=== PATIENT | female | born 1970 | race Caucasian/White ===

== ENCOUNTER 2022-04-17 08:51 | Observation (INO) | payer BC ==
[~2022-04-17 08:51] MED LIST: ACETAMINOPHEN TAB 500 MG TAB PO PRN; DEXAMETHASONE SOD PHOSPHATE 4 MG/ML 1 ML VIAL IV ONE; HEPARIN SODIUM,PORCINE/PF 5,000 UNIT/0.5 ML SYRINGE SQ PRN; HYDROmorphone 0.5 MG/0.5 ML SYRINGE IVP PRN; LIDOCAINE 1% (10MG/ML) FOR IV START INTRADERMA PRN; MIDAZOLAM 2 MG/2 ML VIAL IV PRN
[2022-04-17] MEDS: LACTATED RINGERS 1,000 ML IV SCH (10:18)
[2022-04-17] MEDS: ONDANSETRON 4 MG/2 ML VIAL IVP ONE ×2 (10:33→13:25)
[2022-04-17] MEDS ORDERED: MIDAZOLAM 2 MG/2 ML VIAL IVP ONE (10:46)
[2022-04-17] MEDS ORDERED: fentaNYL (PF) 50 MCG/ML 2 ML AMP IVP ONE (10:46)
--- NOTE | 2022-04-17 10:51 | P.GSHP ---
History of Present Illness H&P Date: 04/17/22 Chief Complaint: Panniculus Is a 52-year-old female who has a well-formed panniculus. Patient has lost in excess 100 pounds after her LAP-BAND surgery. Patient resents today for panniculectomy. Patient aware that this procedure remove redundant skin and fat. She is also aware that this is not a cosmetic procedure and revisional cosmetic procedure surgery may be required for cosmesis. Patient with a risk of infection hematoma and seroma. Past Medical History Past Medical History: Hypertension History of Any Multi-Drug Resistant Organisms: None Reported Past Surgical History: Bariatric Surgery Additional Past Surgical History / Comment(s): LAP BAND SURGERY, LEFT ARM SURGERY FOR FRACTURE, Past Anesthesia/Blood Transfusion Reactions: No Reported Reaction Smoking Status: Former smoker - Past Family History Mother Family Medical History: Cancer Additional Family Medical History / Comment(s): BREAST CANCER Medications and Allergies Home Medications Medication Instructions Recorded Confirmed Type Iron 45 mg PO DAILY 04/13/22 04/17/22 History Lisinopril [Zestril] 10 mg PO DAILY 04/13/22 04/17/22 History QUEtiapine FUMARATE 100 mg PO HS 04/13/22 04/17/22 History buPROPion XL [Wellbutrin XL] 300 mg PO DAILY 04/13/22 04/17/22 History Phentermine HCl [Adipex-P] 37.5 mg PO DAILY 04/16/22 04/17/22 History Allergies Allergy/AdvReac Type Severity Reaction Status Date / Time No Known Allergies Allergy Verified 04/17/22 10:10 Surgical - Exam Vital Signs Temp Pulse Resp BP Pulse Ox 98.8 F 76 18 135/82 98 04/17/22 10:23 04/17/22 10:23 04/17/22 10:23 04/17/22 10:23 04/17/22 10:23 - General well developed, well nourished, no distress - Eyes PERRL - ENT normal pinna - Neck no masses - Respiratory normal expansion - Cardiovascular Rhythm: regular - Abdomen Well-formed panniculus with evidence of chronic skin irritation Abdomen: soft, non tender Assessment and Plan Assessment: Panniculus. We'll perform panniculectomy.
[2022-04-17] MEDS ORDERED: KETOROLAC 15 MG/ML 1 ML VIAL ONE (11:01)
[2022-04-17] MEDS ORDERED: GLYCOPYRROLATE 0.2 MG/ML 2 ML VIAL ONE (11:01)
[2022-04-17] MEDS ORDERED: SUCCINYLCHOLINE CHLORIDE 100 MG/5 ML SYR IV ONE (11:01)
[2022-04-17] MEDS ORDERED: LIDOCAINE 1% INJ 10MG/ML (20 ML MDV) ONE (11:01)
[2022-04-17] MEDS ORDERED: ROPIVACAINE 5 MG/ML 30 ML VIAL ONE (11:01)
[2022-04-17] MEDS ORDERED: HYDROmorphone (PF) 1 MG/ML ONE (11:01)
[2022-04-17] MEDS ORDERED: ROCURONIUM 10 MG/ML (5 ML VIAL) IV ONE (11:01)
[2022-04-17] MEDS ORDERED: NEOSTIGMINE 1 MG/ML 10 ML VIAL ONE (11:01)
[2022-04-17] MEDS ORDERED: PHENYLEPHRINE-0.9% NACL SYG 1,000 MCG/10 ML SYRINGE ONE (11:01)
[2022-04-17] MEDS ORDERED: PROPOFOL 10 MG/ML 20 ML VIAL IV ONE (11:01)
[2022-04-17] MEDS ORDERED: fentaNYL (PF) 50 MCG/ML 2 ML AMP ONE (11:01)
[2022-04-17] MEDS ORDERED: SODIUM CHLORIDE 0.9% (PF) 10 ML VIAL ONE (11:01)
[2022-04-17 11:15] LABS: Calcium 9.2 mg/dL (8.4-10.2); Total Bilirubin 0.9 mg/dL (0.2-1.3)
[2022-04-17 11:18] LABS: Albumin 4.2 g/dL (3.5-5.0); Potassium 4.6 mmol/L (3.5-5.1)
--- NOTE | 2022-04-17 11:35 | P.ANPRN ---
Procedure Note - Anesthesia - Nerve Block Performed Bilateral Erector Spinae Single Time Out Performed: Yes (1045) Date of Procedure: 04/17/22 Procedure Start Time: 10:46 Procedure Stop Time: 10:52 Location of Patient: PreOp Indication: Acute Post-Operative Pain, Requested by Surgeon Specifically requested for management of pain by DrJatinder: Yordy Gonsales Sedation Type: Sedate with meaningful contact maintained Preparation: Sterile Prep Position: Supine Catheter: None Needle Types: Pajunk Needle Gauge: 21 Ultrasound used to visualize needle placement: Yes Ultrasound used to observe medication spread: Yes Injectate: 0.5% Ropivacaine (see comment for volume) (15cc + 15cc nacl) Blood Aspirated: No Pain Paresthesia on Injection Noted: No Resistance on Injection: Normal Image Stored and Saved: Yes Events: Uneventful and Well Tolerated
[2022-04-17] MEDS ORDERED: LACTATED RINGERS 1,000 ML IV ONE ×2 (12:37→12:50)
--- NOTE | 2022-04-17 12:48 | P.OP ---
Date of Procedure: 04/17/22 Preoperative Diagnosis: Panniculus Postoperative Diagnosis: Panniculus Procedure(s) Performed: Panniculectomy Anesthesia: WESLEY Surgeon: Yordy Gonsales Estimated Blood Loss (ml): 25 Pathology: none sent Condition: stable Disposition: PACU Description of Procedure: PROCEDURE: The patient was placed on the operating table in supine position and received general anesthetic. The abdomen was prepped and draped in the usual sterile fashion. The lower skin incision was then made after the skin was marked with a marker. The incision ran from the pubic area to the level of the anterosuperior iliac spine. Using blunt and sharp dissection and electrocautery the subcutaneous tissues were then dissected down to the level of the fascia external oblique. Next, a mickey shaped incision was made around the umbilicus and the umbilicus was then dissected down to the level of the fascia external oblique. Care was taken to ensure that the umbilical stalk was wide enough in order to maintain viability of the umbilicus. After the umbilicus was dissected a 0 Vicryl suture was used to orientate the umbilicus. The suture was placed at the 12 o'clock position of the umbilicus. Following this the dissection was then made from the inferior pannicular incision cephalad. The x iphoid and costal margins were the limits of the dissection. Several small perforating vessels were ligated and cautery was used to maintain hemostasis. Once the dissection was performed the panniculus was then divided in the midline from the level of the umbilicus towards the pubic area. Downward and lateral traction was then placed on the abdominal wall and the skin was suitably marked for transection of the umbilicus. The skin was then incised and the Bovie was used for dissection of the pannicular flap. Next, three 10-Bulgarian ARVIN drains were placed in the wound and brought out through separate stab incisions at the level of the pubic area. The drains were secured to the skin using 3-0 nylon. After the ARVIN drains were secured, Celeste's fascia was closed with interrupted 0 Vicryl sutures and then the skin was closed with running 3-0 Monocryl sutures. Prior to closure of the abdominal wall care was taken to ensure that both the abdominal wall and the abdominal wall flap were hemostatic. Next, the umbilicus was reattached to the abdominal wall. A marking line was made across the top of the iliac crest and this line intercepted with the midline abdominal wall line that had been previously made in the preoperative hold area. A small semicircular U-shaped incision was created at the intersection of the two lines and the umbilicus was brought up through this incision. The umbilicus was then trimmed and secured to the skin using 3-0 Monocryl sutures. At this point the drains were placed to suction. The abdomen was cleaned and then sterile tape was placed over top of the incisions. Abdominal binder was then placed. The patient tolerated the procedure well. The patient was sent to recovery room in stable condition.
[2022-04-17] MEDS ORDERED: ONDANSETRON 4 MG/2 ML VIAL IVP PRN (12:50)
[2022-04-17] MEDS ORDERED: NALOXONE 0.4 MG/ML 1 ML VIAL IV PRN (12:50)
[2022-04-17] MEDS: HYDROmorphone 0.5 MG/0.5 ML SYRINGE IVP PRN ×2 (12:57→13:25)
[2022-04-17] MEDS: KETOROLAC 15 MG/ML 1 ML VIAL IVP SCH (17:04)
[2022-04-17] MEDS: traMADol 50 MG TAB PO PRN (17:10)
--- NOTE | 2022-04-17 19:21 | P.CONS ---
History of Present Illness - Reason for Consult Consult date: 04/17/22 medical management - Chief Complaint Panniculus - History of Present Illness 52-year-old female, with history of hypertension, who has a well-formed panniculus. Patient has lost in excess 100 pounds after her LAP-BAND surgery. Patient resents today for panniculectomy. Patient aware that this procedure remove redundant skin and fat. She is also aware that this is not a cosmetic procedure and revisional cosmetic procedure surgery may be required for cosmesis. Patient with a risk of infection hematoma and seroma. patient admitted to the hospital for possible panniculectomy and is POD # 0 Review of Systems REVIEW OF SYSTEMS: CONSTITUTIONAL: No fever, no malaise, no fatigue. HEENT: No recent visual problems or hearing problems. Denied any sore throat. CARDIOVASCULAR: No chest pain, orthopnea, PND, no palpitations, no syncope. PULMONARY: No shortness of breath, no cough, no hemoptysis. GASTROINTESTINAL: No diarrhea, no nausea, no vomiting, no abdominal pain. NEUROLOGICAL: No headaches, no weakness, no numbness. HEMATOLOGICAL: Denies any bleeding or petechiae. GENITOURINARY: Denies any burning micturition, frequency, or urgency. MUSCULOSKELETAL/RHEUMATOLOGICAL: Denies any joint pain, swelling, or any muscle pain. ENDOCRINE: Denies any polyuria or polydipsia. The rest of the 14-point review of systems is negative. Past Medical History Past Medical History: Hypertension History of Any Multi-Drug Resistant Organisms: None Reported Past Surgical History: Bariatric Surgery Additional Past Surgical History / Comment(s): LAP BAND SURGERY, LEFT ARM SURGERY FOR FRACTURE, Past Anesthesia/Blood Transfusion Reactions: No Reported Reaction Smoking Status: Former smoker - Past Family History Mother Family Medical History: Cancer Additional Family Medical History / Comment(s): BREAST CANCER Medications and Allergies Home Medications Medication Instructions Recorded Confirmed Type Iron 45 mg PO DAILY 04/13/22 04/17/22 History Lisinopril [Zestril] 10 mg PO DAILY 04/13/22 04/17/22 History QUEtiapine FUMARATE 100 mg PO HS 04/13/22 04/17/22 History buPROPion XL [Wellbutrin XL] 300 mg PO DAILY 04/13/22 04/17/22 History Phentermine HCl [Adipex-P] 37.5 mg PO DAILY 04/16/22 04/17/22 History Allergies Allergy/AdvReac Type Severity Reaction Status Date / Time No Known Allergies Allergy Verified 04/17/22 10:10 Physical Exam Vitals: Vital Signs Temp Pulse Resp BP Pulse Ox 04/17/22 13:50 62 16 133/71 100 04/17/22 13:26 70 16 122/77 100 04/17/22 13:08 68 16 122/71 100 04/17/22 12:47 97.1 F L 72 16 117/70 100 04/17/22 10:53 75 16 130/74 100 04/17/22 10:23 98.8 F 76 18 135/82 98 Intake and Output 04/16/22 04/17/22 04/17/22 22:59 06:59 14:59 Intake Total 1550 Output Total 70 Balance 1480 Intake: IV 1550 Output: Urine 20 Estimated Blood Loss 50 Other: Weight 67 kg PHYSICAL EXAMINATION: GENERAL: The patient is alert and oriented x3, not in any acute distress. Well developed, well nourished. HEENT: Pupils are round and equally reacting to light. EOMI. No scleral icterus. No conjunctival pallor. Normocephalic, atraumatic. No pharyngeal erythema. No thyromegaly. CARDIOVASCULAR: S1 and S2 present. No murmurs, rubs, or gallops. PULMONARY: Chest is clear to auscultation, no wheezing or crackles. ABDOMEN: Soft, nontender, nondistended, normoactive bowel sounds. No palpable organomegaly. MUSCULOSKELETAL: No joint swelling or deformity. EXTREMITIES: No cyanosis, clubbing, or pedal edema. NEUROLOGICAL: Gross neurological examination did not reveal any focal deficits. SKIN: No rashes. Results CBC & Chem 7: 04/17/22 10:32 Labs: Abnormal Lab Results - Last 24 Hours (Table) 04/17/22 Range/Units 10:32 BUN 18 H (7-17) mg/dL Assessment and Plan Assessment: 1. Morbid obesity with history of lap band surgery and panniculus formation - patient underwent panniculectomy; POD #0; your management 2. Hypertension; continue with home dose of lisinopril 10 mg daily; monitor blood pressure closely for any further changes 3. Insomnia/sleep disorder; we will continue with Seroquel 100 mg by mouth daily at bedtime CODE STATUS; full code
[2022-04-17] MEDS: oxyCODONE-APAP 5-325MG 1 EACH TAB PO PRN (19:38)
[2022-04-17] MEDS ORDERED: QUEtiapine 100 MG TAB PO SCH (21:00)
[2022-04-18] MEDS: KETOROLAC 15 MG/ML 1 ML VIAL IVP SCH ×3 (00:15→12:22)
[2022-04-18] MEDS: HYDROmorphone 0.5 MG/0.5 ML SYRINGE IVP PRN (01:01)
[2022-04-18] MEDS: traMADol 50 MG TAB PO PRN ×2 (01:08→12:25)
[2022-04-18] MEDS: LACTATED RINGERS 1,000 ML IV SCH (06:23)
[2022-04-18] MEDS: oxyCODONE-APAP 5-325MG 1 EACH TAB PO PRN (08:41)
[2022-04-18 08:43] VITALS: BP 111/71; PULSE 79; RESP 18; TEMP 97.9
[2022-04-18] MEDS ORDERED: buPROPion XL 300 MG TAB.ER.24H PO SCH (09:00)
[2022-04-18] MEDS ORDERED: lisinopriL 10 MG TAB PO SCH (09:00)
[2022-04-18] MEDS ORDERED: FERROUS SULFATE 325 MG TAB PO SCH (09:00)
[2022-04-18] MEDS ORDERED: ENOXAPARIN 40 MG/0.4 ML SYRINGE SQ SCH (09:00)
--- NOTE | 2022-04-18 11:41 | P.DS ---
Providers Date of admission: 04/18/22 02:36 Expected date of discharge: 04/18/22 Attending physician: Yordy Gonsales Consults: 04/17/22 12:48 Consult Physician Routine Consulting Provider: Kush Garcia Consult Reason/Comments: Medical management Do you want consulting provider notified?: Yes Primary care physician: Physician Nonsta Hospital Course: This a 52-year-old female who underwent pannicular yesterday. Patient did well postoperative. She was discharged home postoperative day 1. Procedures: Panniculectomy Patient Condition at Discharge: Good Plan - Discharge Summary Discharge Rx Participant: Yes New Discharge Prescriptions: New oxyCODONE HCL [OxyIR] 5 mg PO Q6H PRN 3 Days #10 tab PRN Reason: Pain Acetaminophen Tab [Tylenol] 650 mg PO Q6H #30 tab Docusate [Colace] 100 mg PO BID #20 capsule Ibuprofen [Motrin] 600 mg PO Q6HR PRN #40 tab PRN Reason: Pain No Action QUEtiapine FUMARATE 100 mg PO HS Lisinopril [Zestril] 10 mg PO DAILY Iron 45 mg PO DAILY buPROPion XL [Wellbutrin XL] 300 mg PO DAILY Phentermine HCl [Adipex-P] 37.5 mg PO DAILY Discharge Medication List Iron 45 mg PO DAILY 04/13/22 [History] Lisinopril [Zestril] 10 mg PO DAILY 04/13/22 [History] QUEtiapine FUMARATE 100 mg PO HS 04/13/22 [History] buPROPion XL [Wellbutrin XL] 300 mg PO DAILY 04/13/22 [History] Phentermine HCl [Adipex-P] 37.5 mg PO DAILY 04/16/22 [History] Acetaminophen Tab [Tylenol] 650 mg PO Q6H #30 tab 04/18/22 [Rx] Docusate [Colace] 100 mg PO BID #20 capsule 04/18/22 [Rx] Ibuprofen [Motrin] 600 mg PO Q6HR PRN #40 tab 04/18/22 [Rx] oxyCODONE HCL [OxyIR] 5 mg PO Q6H PRN 3 Days #10 tab 04/18/22 [Rx] Follow up Appointment(s)/Referral(s): Yordy Gonsales MD [STAFF PHYSICIAN] - 1 Week Discharge Disposition: HOME SELF-CARE
== END 2022-04-18 14:35 | disposition home or self-care (01) ==
LOC: OR 08:51 → 4SSUR 13:48 → OR 04-18 02:36 → 4SSUR 04-18 02:36
PROVIDERS: ADMIT Surgery; ATTEND Surgery
DX: M79.3 Panniculitis, unspecified (principal); Z98.84 Bariatric surgery status; I10 Essential (primary) hypertension; Z87.81 Personal history of (healed) traumatic fracture; Z98.890 Other specified postprocedural states; Z87.891 Personal history of nicotine dependence; Z80.3 Family history of malignant neoplasm of breast; Z79.899 Other long term (current) drug therapy; G47.00 Insomnia, unspecified; K21.9 Gastro-esophageal reflux disease without esophagitis
CPT/HCPCS: 64999; 80053; 15830; 15847; G0378; J2250; J1100; J2710; J0690; J2405; J2001; J1650; J3010; J1170 ×3; J2795; J1885 ×2; J2370; J0330; J2704; J1644

== ENCOUNTER 2022-06-17 06:20 | Day surgery (SDC) | payer BC ==
[2022-06-12 16:19] VITALS: BMI 24.3
[~2022-06-17 06:20] MED LIST changes: -DEXAMETHASONE SOD PHOSPHATE 4 MG/ML 1 ML VIAL IV ONE; -HYDROmorphone 0.5 MG/0.5 ML SYRINGE IVP PRN; -LIDOCAINE 1% (10MG/ML) FOR IV START INTRADERMA PRN; -MIDAZOLAM 2 MG/2 ML VIAL IV PRN
[2022-06-17] MEDS ORDERED: ONDANSETRON 4 MG/2 ML VIAL ONE (06:58)
[2022-06-17] MEDS ORDERED: SODIUM CHLORIDE 0.9% 1,000 ML IV ONE (07:20)
[2022-06-17] MEDS ORDERED: ONDANSETRON 4 MG/2 ML VIAL IVP ONE (07:22)
[2022-06-17] MEDS ORDERED: MIDAZOLAM 2 MG/2 ML VIAL IVP ONE (07:23)
[2022-06-17] MEDS ORDERED: DEXAMETHASONE SOD PHOSPHATE 4 MG/ML 1 ML VIAL IVP ONE (07:23)
[2022-06-17] MEDS ORDERED: BUPIVACAIN-EPI 0.25%-1:200,000 30 ML VIAL SQ ONE ×2 (07:25→08:16)
[2022-06-17] MEDS ORDERED: SUCCINYLCHOLINE CHLORIDE 200 MG/10 ML VIAL IV ONE (07:45)
[2022-06-17] MEDS ORDERED: NEOSTIGMINE 1 MG/ML 10 ML VIAL ONE (07:45)
[2022-06-17] MEDS ORDERED: ROCURONIUM 10 MG/ML (5 ML VIAL) IV ONE (07:45)
[2022-06-17] MEDS ORDERED: fentaNYL (PF) 50 MCG/ML 2 ML AMP ONE (07:45)
[2022-06-17] MEDS ORDERED: LIDOCAINE 2% INJ 20 MG/ML (2 ML VIAL) ONE (07:45)
[2022-06-17] MEDS ORDERED: PROPOFOL 10 MG/ML 20 ML VIAL IV ONE (07:45)
[2022-06-17] MEDS ORDERED: MIDAZOLAM 2 MG/2 ML VIAL ONE (07:45)
[2022-06-17] MEDS ORDERED: GLYCOPYRROLATE 0.2 MG/ML 2 ML VIAL ONE (07:45)
--- NOTE | 2022-06-17 08:42 | P.GSHP ---
History of Present Illness H&P Date: 06/17/22 Chief Complaint: Dysphagia, GERD This a 52-year-old female who's recently diagnosed with right renal cancer. Patient is undergoing nephrectomy at [facility]. Patient's preoperative workup showed a CAT scan which showed a grossly dilated esophagus and evidence of dysphagia reflux. Patient presents today for removal of LAP- BAND system Past Medical History Past Medical History: Cancer, Hypertension Additional Past Medical History / Comment(s): NEWLY DIAGNOSED STAGE III LEFT SIDED KIDNEY CANCER History of Any Multi-Drug Resistant Organisms: None Reported Past Surgical History: Bariatric Surgery Additional Past Surgical History / Comment(s): LAP BAND SURGERY, LEFT ARM SURGERY FOR FRACTURE, PANNICULECTOMY Past Anesthesia/Blood Transfusion Reactions: No Reported Reaction Past Psychological History: Anxiety, Depression, Panic Disorder Additional Psychological History / Comment(s): PAST HISTORY OF PANIC ATTACK Smoking Status: Former smoker Past Alcohol Use History: Daily Additional Past Alcohol Use History / Comment(s): STARTED SMOKING AT AGE 18 QUIT SMOKING ON AND OFF AND QUIT JANUARY 2022 SMOKED 1/2-1PPD DRINKS 2-3 MIXED DRINKS PER DAY Past Drug Use History: Marijuana Additional Drug Use History / Comment(s): GUMMIES FOR PAIN OCCASIONALLY - Past Family History Mother Family Medical History: Cancer Additional Family Medical History / Comment(s): BREAST CANCER Medications and Allergies Home Medications Medication Instructions Recorded Confirmed Type QUEtiapine FUMARATE 100 mg PO HS 04/13/22 06/17/22 History lisinopriL [Zestril] 10 mg PO DAILY 04/13/22 06/17/22 History Phentermine HCl [Adipex-P] 37.5 mg PO DAILY 04/16/22 06/17/22 History ALPRAZolam [Xanax] 1 mg PO DAILY PRN 06/12/22 06/17/22 History Allergies Allergy/AdvReac Type Severity Reaction Status Date / Time No Known Allergies Allergy Verified 06/17/22 06:47 Surgical - Exam Vital Signs Temp Pulse Resp BP Pulse Ox 97.6 F 80 18 108/71 98 06/17/22 06:50 06/17/22 06:50 06/17/22 06:50 06/17/22 06:50 06/17/22 06:50 - General well developed, well nourished, no distress - Eyes PERRL - ENT normal pinna - Neck no masses - Respiratory normal expansion - Cardiovascular Rhythm: regular - Abdomen Abdomen: soft, non tender Assessment and Plan Assessment: Dysphagia, GERD. We'll perform removal of LAP-BAND system.
--- NOTE | 2022-06-17 08:55 | P.OP ---
Date of Procedure: 06/17/22 Preoperative Diagnosis: Dysphagia Dilated esophagus Postoperative Diagnosis: Same Procedure(s) Performed: Removal of LAP-BAND system Anesthesia: WESLEY Surgeon: Yordy Gonsales Estimated Blood Loss (ml): 5 Pathology: none sent Condition: stable Disposition: PACU Description of Procedure: The patient's placed on the operative table in the supine position. She received general endotracheal tube anesthesia. She was then placed in dorsal 5 position. Her abdomen was prepped and draped usual sterile fashion. The skin incision sites were anesthetized 1% local Xylocaine. The LAP-BAND port site was incised and using blunt and sharp dissection with cautery the LAP-BAND port was dissected free. Using a 5 mm optical trocar under direct visualization panel cavity is entered. The abdomen was insufflated. After adequate insufflation the laparoscope was placed back the pleural cavity. Next a 5 mm trochars placed in the left lateral position. And then a right lateral position 5 mm trocar was placed. And then another 5 mm trochars placed in the right epigastric position. The left lateral lobe liver was retracted. The original 5 mm trochars exchanged for a 15 mm trocar. The LAP-BAND was then visualized. And then the adhesions Rod device were then dissected using left cautery. The LAP-BAND band was then cut and then withdrawn from around stomach. The Tubes and grasped and brought out through the 15 mm trocar site. The trochars withdrawn. The LAP-BAND system was then brought up through the 15 mm trocar site. There was no bleeding seen. Trochars withdrawn. The skin was closed interrupted 3-0 Monocryl suture. Dermabond was applied. Patient top she will was sent to recovery in stable condition.
[2022-06-17] MEDS ORDERED: HYDROmorphone 0.5 MG/0.5 ML SYRINGE IVP ONE ×4 (09:00→09:28)
[2022-06-17 09:21] VITALS: TEMP 96.9
[2022-06-17 11:18] VITALS: BP 123/76; PULSE 65; RESP 18
== END 2022-06-17 11:30 | disposition home or self-care (01) ==
LOC: OR 06:20
PROVIDERS: ATTEND Surgery
DX: K22.89 Other specified disease of esophagus (principal); R13.10 Dysphagia, unspecified; K59.09 Other constipation; K95.09 Other complications of gastric band procedure; I10 Essential (primary) hypertension; Z87.891 Personal history of nicotine dependence; F41.9 Anxiety disorder, unspecified; Z79.899 Other long term (current) drug therapy; Z80.3 Family history of malignant neoplasm of breast; C64.1 Malignant neoplasm of right kidney, except renal pelvis; Z98.84 Bariatric surgery status; F32.A Depression, unspecified
CPT/HCPCS: 43774; J2250; J0330; J1100; J2710; J0690; J2405; J3010; J2704; J1170; J1644; J2001